=== PATIENT | female | born 1985 | race Hispanic/Latino ===

== ENCOUNTER 2025-06-30 06:26 | Day surgery (SDC) | payer MEDICAID ==
[~2025-06-30] VITALS: Ht 165.1 cm; Wt 195.0 kg
[2025-06-30] VITALS (11 sets, daily range): BP systolic 111–136; BP diastolic 60–86; PULSE 64–74; RESP 15–20; TEMP 97–97.9
[2025-06-30] MEDS ORDERED: LISI1TAB53 PO (07:03)
[2025-06-30] MEDS ORDERED: METO-409 PO (07:03)
[2025-06-30] MEDS: 0.9%NACL 1000ML 1,000 ML IV ONE (07:06)
[2025-06-30] MEDS ORDERED: MIDAZOLAM HCL 1 MG/ML 2ML VIAL ONE (07:26)
[2025-06-30] MEDS ORDERED: LIDOCAINE HCL 400MG/20ML VIAL ONE (07:27)
== END 2025-06-30 11:30 | disposition home or self-care (01) ==
LOC: SUH 06:26 → DAH 06:26 → SUH 11:30
PROVIDERS: ATTEND Surgery
DX: K21.00 Gastro-esophageal reflux disease with esophagitis, without bleeding (principal); K31.89 Other diseases of stomach and duodenum; K29.50 Unspecified chronic gastritis without bleeding; K22.89 Other specified disease of esophagus; E78.2 Mixed hyperlipidemia; I10 Essential (primary) hypertension; E66.01 Morbid (severe) obesity due to excess calories; G47.30 Sleep apnea, unspecified; E55.9 Vitamin D deficiency, unspecified; Z79.899 Other long term (current) drug therapy; Z68.45 Body mass index [BMI] 70 or greater, adult
CPT/HCPCS: 43239; 81025; J3010; J3490; J7030; J2250; J2704; A4620; A4215 ×2; A4223; A4222; A4221; A4663; A4606